=== PATIENT | male | born 1960 | race Caucasian/White ===

== ENCOUNTER 2017-01-06 10:48 | Emergency (ER) | payer OTHER | END 2017-01-06 12:57 | disposition home or self-care (01) | LOC: ERS 10:48 | DX: M70.41 Prepatellar bursitis, right knee (principal); Z48.02 Encounter for removal of sutures | CPT/HCPCS: 27301 ==

== ENCOUNTER 2019-08-15 14:04 | Outpatient (CLI) | payer OTHER ==
--- NOTE | 2019-08-15 14:31 | RAD ---
Abdomen one view HISTORY: Renal stones. COMPARISON: 06/12/2015. FINDINGS: Large amount of gas and stool throughout the bowel predominantly obscures the renal outline s. Small bowel gas pattern is nonspecific. Metallic coils over the abdomen suggests prior abdominal wall surgery. Projecting over the midportion of the right kidney are 2 lobular calcifications, measuring 0.4 cm and 0.6 cm greatest diameter. Prominent degenerative changes of lumbar spine and hips. Osteophytosis of the sacroiliac joints and p ubic symphysis. IMPRESSION : Right renal calculi.
== END 2019-08-15 14:05 | disposition home or self-care (01) ==
LOC: BICRAD 14:04
PROVIDERS: ATTEND Urology
DX: N20.0 Calculus of kidney (principal)
CPT/HCPCS: 74018

== ENCOUNTER 2020-12-15 15:35 | Emergency (ER) | payer OTHER ==
[2020-12-15] MEDS ORDERED: Lidocaine 1% PF 5 ML VIAL ONE (16:37)
[2020-12-15] MEDS ORDERED: Lidocaine 2% PF 100 mg/5 ml Syringe ONE (16:37)
[2020-12-15 16:57] LABS: #Basophils 0.1 thou/uL (0.0-0.2); #Eosinphils 0.2 thou/uL (0.0-0.7); #Lymphocytes 2.1 thou/uL (1.20-3.40); #Monocytes 1.2 thou/uL (0.11-0.59); #Neutrophils 8.2 thou/uL (1.40-6.50); %Basophils 0.8 % (0.0-1.0); %Eosinophils 1.9 % (0.0-10.0); %Lymphocytes 17.5 % (21.0-51.0); %Monocytes 10.1 % (0.0-10.0); %Neutrophils 69.8 % (42.0-75.0); Mean Corpuscular HGB CONC 34.2 g/dL (32.0-36.0); Mean Corpuscular Hemoglobin 29.9 pg (27.0-31.0); Mean Corpuscular Volume 87.4 fL (78.0-98.0); Mean Platelet Volume 8.8 fL (7.4-10.4); Platelet Count 181 thou/uL (130-400); RBC Distribution Width 14.4 % (11.5-14.5); Red Blood Cell (RBC) Count 4.69 mill/uL (4.70-6.10); White Blood Cell (WBC) Count 11.7 thou/uL (4.8-10.8)
[2020-12-15 17:04] LABS: PTT 28.6 sec (22.9-36.1); Prothrombin Time 13.6 sec (12.0-14.7)
[2020-12-15] MEDS ORDERED: Boostrix 0.5 ML (Tdap) VIAL ONE (17:28)
== END 2020-12-15 17:40 | disposition home or self-care (01) ==
LOC: ERS 15:35
DX: S91.011A Laceration without foreign body, right ankle, initial encounter (principal); I83.891 Varicose veins of right lower extremity with other complications; E11.9 Type 2 diabetes mellitus without complications; Z23 Encounter for immunization; X58.XXXA Exposure to other specified factors, initial encounter
CPT/HCPCS: 12001; 36415; 85025; 85610; 85730; 90471; 90715; J2001

== ENCOUNTER 2020-12-23 16:19 | Emergency (ER) | payer OTHER | END 2020-12-23 16:47 | disposition home or self-care (01) | LOC: ERS 16:19 | DX: S91.011D Laceration without foreign body, right ankle, subsequent encounter (principal); E11.9 Type 2 diabetes mellitus without complications; Z79.899 Other long term (current) drug therapy; Z79.84 Long term (current) use of oral hypoglycemic drugs ==